=== PATIENT | female | born 1970 | race Caucasian/White ===

== ENCOUNTER 2019-02-08 14:53 | Emergency (ER) | payer MEDICAID, MEDICARE ==
[~2019-02-08] VITALS: Ht 160 cm; Wt 93.0 kg
[~2019-02-08 14:53] MED LIST: ACET325T14 PO; ALPR0.5T5 PO; DIAZ2TAB PO; HYDR-3237 PO; OXYC-302 PO; TRAZ-137 PO; TRAZ150T62 PO; ZOLP-413 PO
--- NOTE | 2019-02-08 15:12 | NUR ---
PT HERE FOR RIGHT FLANK AND GROIN PAIN. PT SEEN AT [facility] FOR SAME YESTERDAY. PT HAS HX OF KIDNEY STONES. PT UP TO BATHROOM FOR UA.
--- NOTE | 2019-02-08 15:21 | NUR ---
UA SENT TO LAB. US AND LAB AT BEDSIDE
[2019-02-08] MEDS ORDERED: ONDANSETRON 2MG/ML, 2ML IVPush ONE (15:30)
[2019-02-08 15:31] LABS: BASOPHILS # (AUTO) 0.04 x10^3/uL (0-0.1); BASOPHILS % (AUTO) 1 % (0-1); EOSINOPHILS # (AUTO) 0.05 x10^3/uL (0-0.4); EOSINOPHILS % (AUTO) 1 % (1-7); LYMPHOCYTES # (AUTO) 3.02 x10^3/uL (1-3.4); LYMPHOCYTES % (AUTO) 46 % (22-44); MD NO; MEAN CORPUSCULAR HEMOGLOBIN 29.6 pg (27.0-34.8); MEAN CORPUSCULAR HGB CONC 33.8 g/dL (32.4-35.8); MEAN CORPUSCULAR VOLUME 87.6 fL (80-100); MEAN PLATELET VOLUME 7.4 fL (7.4-10.4); MONOCYTES # (AUTO) 0.36 x10^3/uL (0.2-0.8); MONOCYTES % (AUTO) 5 % (2-9); NEUTROPHILS # (AUTO) 3.17 x10^3/uL (1.8-6.8); NEUTROPHILS % (AUTO) 48 % (42-75); PLATELET COUNT 263 x10^3/uL (130-400); RED BLOOD COUNT 4.48 x10^6/uL (3.82-5.3); RED CELL DISTRIBUTION WIDTH 12.7 % (9.6-15.2)
[2019-02-08 15:40] LABS: MICROSCOPIC INDICATED
[2019-02-08 15:43] LABS: ANION GAP 9 mmol/L (5-15); CALCIUM 9.1 mg/dL (8.5-10.1); CHLORIDE 112 mmol/L (98-107); CREATININE 0.86 mg/dL (0.55-1.02)
[2019-02-08 15:44] LABS: ALANINE AMINOTRANSFERASE 49 U/L (12-78); ALBUMIN 3.8 g/dL (3.4-5.0)
[2019-02-08 15:45] LABS: ALKALINE PHOSPHATASE 68 U/L (45-117); BILIRUBIN,TOTAL 0.4 mg/dL (0.2-1.0); TOTAL PROTEIN 7.2 g/dL (6.4-8.2)
[2019-02-08 15:56] LABS: CULTURE INDICATED? YES
--- NOTE | 2019-02-08 15:56 | NUR ---
PIV ATTEMPTED X 2 WITH NO SUCCESS. TINO RN AT BEDSIDE TO PLACE PIV.
[2019-02-08] MEDS ORDERED: MORPHINE SULFATE 4 MG/ML, 1ML ONE ×2 (16:14→17:19)
[2019-02-08] MEDS ORDERED: ONDANSETRON 2MG/ML, 2ML ONE (16:14)
[2019-02-08] MEDS: MORPHINE SULFATE 4 MG/ML, 1ML IVPush PRN ×2 (16:17→17:22)
--- NOTE | 2019-02-08 16:19 | NUR ---
PT MEDICATED FOR PAIN. PT TO CT
[2019-02-08] MEDS ORDERED: OMNIPAQUE 350 MG/ML, 100ML BOTTLE ONE (16:37)
[2019-02-08 16:41] VITALS: BP 128/69
--- NOTE | 2019-02-08 16:41 | NUR ---
PT BACK FROM CT. VSS. PT RESTING WITH NO NEEDS AT THIS TIME. CALL LIGHT IN REACH
--- NOTE | 2019-02-08 17:28 | NUR ---
Patient given discharge instructions and they have confirmed that they understand the instructions. Patient ambulatory with steady gait.
== END 2019-02-08 17:30 | disposition home or self-care (01) ==
LOC: ED 15:44
DX: N10 Acute pyelonephritis (principal); R10.31 Right lower quadrant pain; Z90.49 Acquired absence of other specified parts of digestive tract; Z90.710 Acquired absence of both cervix and uterus
CPT/HCPCS: 36415; 74177; 76770; 80053; 81001; 83690; 85025; 87086; 96374; 96375; 96376; 99284; J2270; J2405; Q9967